=== PATIENT | female | born 1990 | race Two or more races ===

== ENCOUNTER 2021-06-14 03:00 | Emergency (ER) | payer BC ==
[~2021-06-14] VITALS: Ht 167.6 cm; Wt 70.8 kg
[2021-06-14 03:07] VITALS: BP 101/74
[2021-06-14] MEDS ORDERED: NAPR-1196 PO (04:35)
--- NOTE | 2021-06-14 04:43 | NUR ---
Patient discharged to home in stable condition. Written and verbal after care instructions given. Patient verbalizes understanding of instruction. Pt ambulatory with a steady gait
== END 2021-06-14 04:46 | disposition home or self-care (01) ==
LOC: ER 03:05
DX: R07.89 Other chest pain (principal); G89.29 Other chronic pain; Z79.1 Long term (current) use of non-steroidal anti-inflammatories (NSAID); Z59.00 Homelessness unspecified
CPT/HCPCS: 71045-TC